=== PATIENT | female | born 1950 | race American Indian/Alaskan Native ===

== ENCOUNTER 2017-09-17 15:38 | Emergency (ER) | payer SELFPAY ==
[2017-09-17] MEDS ORDERED: ASPIRIN PO ONE (16:06)
[2017-09-17 16:55] LABS: Basophils # (Auto) 0.1 K/mm3 (0.0-0.1); Basophils % (Auto) 0.8 % (0.0-1.8); Eosinophils # (Auto) 0.1 K/mm3 (0.0-0.4); Eosinophils % (Auto) 0.9 % (0.0-4.3); Hematocrit 35.7 % (30.3-42.9); Hemoglobin 11.2 gm/dl (10.1-14.3); Lymphocytes % (Auto) 27.7 % (13.4-35.0); Mean Corpuscular HGB Conc 32 % (30-34); Mean Corpuscular Volume 72 fl (79-97); Monocytes # (Auto) 0.7 K/mm3 (0.0-0.8); Monocytes % (Auto) 9.6 % (0.0-7.3); Platelet Count 487 K/mm3 (140-440); Red Blood Count 4.99 M/mm3 (3.65-5.03); Red Cell Distribution Width 17.9 % (13.2-15.2)
[2017-09-17 16:56] LABS: Mean Corpuscular Hemoglobin 23 pg (28-32)
[2017-09-17 17:07] LABS: BUN/Creatinine Ratio 13; Blood Urea Nitrogen 8 mg/dL (7-17); Calcium 9.6 mg/dL (8.4-10.2); Hemolysis Index 19
[2017-09-18] MEDS ORDERED: CATAPRES PO ONE (02:19)
--- NOTE | 2017-09-18 02:24 | Emergency Department Report ---
ED General Adult HPI - General Chief complaint: Dizziness Stated complaint: BODY PAIN, HTN Time Seen by Provider: 09/18/17 02:13 Source: family Mode of arrival: Ambulatory Limitations: Language Barrier - History of Present Illness Initial comments: Patient is 67 years old female recently moved from [place], does not speak Frisian, her daughter is translating, presented to the ER with his dizziness and chest pain for the last 5 days. Daughter stated that her mother has history of hypertension and she did not bring her blood pressure medication with her from [place]. Patient denied any headache. She stated that her chest and is completely resolved. She denied any weakness numbness or tingling sensation. No bowel or bladder incontinence. No fever recently. - Related Data Previous Rx's Medication Instructions Recorded Last Taken Type amLODIPine [Norvasc] 5 mg PO DAILY #60 tab 09/18/17 Unknown Rx Allergies Allergy/AdvReac Type Severity Reaction Status Date / Time No Known Allergies Allergy Verified 09/17/17 16:01 ED Review of Systems ROS: Stated complaint: BODY PAIN, HTN Other details as noted in HPI Comment: All other systems reviewed and negative Constitutional: denies: chills, fever Respiratory: denies: cough, orthopnea, shortness of breath Cardiovascular: chest pain. denies: palpitations, dyspnea on exertion, orthopnea, edema, syncope, paroxysmal nocturnal dyspnea Gastrointestinal: denies: abdominal pain, nausea, vomiting Genitourinary: denies: urgency, dysuria, frequency, hematuria Musculoskeletal: denies: back pain Skin: denies: rash, lesions, change in color, change in hair/nails Neurological: denies: headache, weakness, numbness, paresthesias, confusion ED Past Medical Hx - Past Medical History Previous Medical History?: Yes Hx Hypertension: Yes - Surgical History Past Surgical History?: No - Social History Smoking Status: Never Smoker Substance Use Type: None - Medications Home Medications: Home Medications Medication Instructions Recorded Confirmed Last Taken Type amLODIPine [Norvasc] 5 mg PO DAILY #60 tab 09/18/17 Unknown Rx ED Physical Exam - General Limitations: Language Barrier General appearance: alert, in no apparent distress - Head Head exam: Present: atraumatic, normocephalic - Eye Eye exam: Present: normal appearance, PERRL - ENT ENT exam: Present: normal exam, normal orophraynx, mucous membranes moist - Neck Neck exam: Present: normal inspection, full ROM. Absent: tenderness, meningismus, lymphadenopathy, thyromegaly - Expanded Neck Exam Expanded Neck exam: Absent: tenderness, midline deformity, anterior neck swelling - Respiratory Respiratory exam: Present: normal lung sounds bilaterally. Absent: respiratory distress, wheezes, rales, rhonchi, stridor, chest wall tenderness, accessory muscle use, decreased breath sounds, prolonged expiratory - Cardiovascular Cardiovascular Exam: Present: regular rate, normal rhythm, normal heart sounds - GI/Abdominal GI/Abdominal exam: Present: soft, normal bowel sounds. Absent: distended, tenderness, guarding, rebound, rigid, organomegaly, mass, bruit, pulsatile mass , hernia - Extremities Exam Extremities exam: Present: normal inspection, full ROM, normal capillary refill - Back Exam Back exam: Present: normal inspection, full ROM. Absent: tenderness, CVA tenderness (R), CVA tenderness (L), muscle spasm, paraspinal tenderness, vertebral tenderness, rash noted - Neurological Exam Neurological exam: Present: alert, oriented X3, CN II-XII intact, normal gait, reflexes normal. Absent: abnormal gait, motor sensory deficit - Skin Skin exam: Present: warm, intact, normal color. Absent: cyanosis, diaphoretic, erythema ED Course Vital Signs 09/17/17 09/18/17 09/18/17 16:01 01:36 01:45 Temperature 99.1 F Pulse Rate 113 H 107 H 100 H Respiratory 16 14 19 Rate Blood Pressure 176/93 150/90 O2 Sat by Pulse 100 100 Oximetry 09/18/17 09/18/17 09/18/17 02:00 02:05 02:15 Temperature Pulse Rate 98 H 99 H Respiratory 19 20 13 Rate Blood Pressure 163/91 169/99 O2 Sat by Pulse 100 100 100 Oximetry 09/18/17 09/18/17 09/18/17 02:30 02:54 03:00 Temperature Pulse Rate 84 97 H Respiratory 17 17 Rate Blood Pressure 132/82 142/86 138/85 O2 Sat by Pulse 100 100 Oximetry 09/18/17 09/18/17 09/18/17 03:16 03:30 03:46 Temperature Pulse Rate 83 86 88 Respiratory 16 17 17 Rate Blood Pressure 138/85 130/79 130/79 O2 Sat by Pulse 100 100 100 Oximetry 09/18/17 04:00 Temperature Pulse Rate 93 H Respiratory 18 Rate Blood Pressure 119/64 O2 Sat by Pulse 98 Oximetry - Reevaluation(s) Reevaluation #1: 09/18/17 04:56 Patient stated that she is feeling much better, no dizziness, no chest pain no weakness. ED Medical Decision Making - Lab Data Result diagrams: 09/17/17 16:13 09/17/17 16:13 - EKG Data -: EKG Interpreted by [place] EKG shows normal: sinus rhythm Rate: normal - EKG Data Interpretation: no acute changes - Radiology Data Radiology results: report reviewed Referring Physician: JOSHUA LEBLANC Patient Name: FLORES BAUGH Date of : 1950 Sex: Female Report Date: 2017-09-17 Report Status: Finalized Findings [facility] [address] [id number] Cat Scan Report Signed Patient: FLORES BAUGH MR#: [id number] : 1950 Acct:[id number] Age/Sex: 67 / F ADM Date: 09/17/17 Loc: ED Attending Dr: Ordering Physician: JOSHUA LEBLANC Date of Service: 09/18/17 Procedure(s): CT head/brain wo con Accession Number(s): [id number] cc: JOSHUA LEBLANC FINAL REPORT PROCEDURE: CT HEAD/BRAIN WO CON TECHNIQUE: Computerized tomography of the head was performed without contrast material. HISTORY: dizziness COMPARISON: No prior studies are available for comparison. FINDINGS: Skull and scalp: Normal. Paranasal sinuses: Normal. Ventricles and subarachnoid spaces: Normal. Cerebrum: There is no evidence of acute intracranial hemorrhage, hematoma, infarction, midline displacement or mass. Moderate atrophy and periventricular deep white matter changes.. Cerebellum and brainstem: No evidence of hemorrhage, acute infarction or mass. Vasculature: Normal. Comments: None. IMPRESSION: There is no evidence of an acute intracranial process. Moderate atrophy and periventricular deep white matter change Transcribed By: [facility] Dictated By: ALEX PALACIOS MD Electronically Authenticated By: ALEX PALACIOS MD Signed Date/Time: 09/17/172306 DD/ 06 TD/TT: 01/30/18 2307 Critical care attestation.: If time is entered above; I have spent that time in minutes in the direct care of this critically ill patient, excluding procedure time. ED Disposition Clinical Impression: Dizziness, Malignant hypertension Disposition: - TO HOME OR SELFCARE Is pt being admited?: No Condition: Stable Instructions: Hypertension (ED), Dizziness (ED) Prescriptions: amLODIPine [Norvasc] 5 mg PO DAILY #60 tab Referrals: SOCRATES HERRERA MD [Primary Care Provider] - 3-5 Days
--- NOTE | 2017-09-18 03:10 | Cat Scan Report ---
FINAL REPORT PROCEDURE: CT HEAD/BRAIN WO CON TECHNIQUE: Computerized tomography of the head was performed without contrast material. HISTORY: dizziness COMPARISON: No prior studies are available for comparison. FINDINGS: Skull and scalp: Normal. Paranasal sinuses: Normal. Ventricles and subarachnoid spaces: Normal. Cerebrum: There is no evidence of acute intracranial hemorrhage, hematoma, infarction, midline displacement or mass. Moderate atrophy and periventricular deep white matter changes.. Cerebellum and brainstem: No evidence of hemorrhage, acute infarction or mass. Vasculature: Normal. Comments: None. IMPRESSION: There is no evidence of an acute intracranial process. Moderate atrophy and periventricular deep white matter change
[2017-09-18 05:05] VITALS: BP 142/86
== END 2017-09-18 05:09 | disposition home or self-care (01) ==
LOC: ED 15:38
DX: R42 Dizziness and giddiness (principal); I10 Essential (primary) hypertension
CPT/HCPCS: 36415; 70450; 80048; 84484; 85025; 93005; 93010